=== PATIENT | male | born 1950 | race Two or more races ===

== ENCOUNTER 2018-05-24 12:08 | Inpatient (IN) | payer OTHER ==
[~2018-05-24] VITALS: Ht 152.4 cm; Wt 68.5 kg
[2018-06-12] MEDS ORDERED: LISINOPRIL20 MG PO (11:24)
[2018-06-12] MEDS ORDERED: FENOFIBRATE145 MG PO (11:25)
[2018-06-12] MEDS ORDERED: COD LIVER OIL1 EACH PO (11:25)
== END 2018-06-29 18:48 | disposition home or self-care (01) | DRG 329 ==
LOC: SURG 06-12 09:15 → SURH 06-26 05:40 → O/R 06-26 05:40 → SURG 06-26 09:15 → SURH 06-26 13:46
PROVIDERS: Urology; ADMIT Colon & Rectal Surgery
PROC: 0DTN0ZZ Resection of Sigmoid Colon, Open Approach (ICD-10-PCS; principal; 2018-06-26 10:15)
PROC: 0DJD8ZZ Inspection of Lower Intestinal Tract, Via Natural or Artificial Opening Endoscopic (ICD-10-PCS; 2018-06-26 10:15)
DX: K57.20 Diverticulitis of large intestine with perforation and abscess without bleeding (principal); K68.12 Psoas muscle abscess; D50.0 Iron deficiency anemia secondary to blood loss (chronic); I13.10 Hypertensive heart and chronic kidney disease without heart failure, with stage 1 through stage 4 chronic kidney disease, or unspecified chronic kidney disease; N18.3 Chronic kidney disease, stage 3 (moderate)

== ENCOUNTER 2019-10-04 06:40 | Day surgery (SDC) | payer OTHER ==
[~2019-10-04 06:40] MED LIST: COD LIVER OIL1 EACH PO; FENOFIBRATE145 MG PO; LISINOPRIL20 MG PO
== END 2019-10-04 12:35 | disposition home or self-care (01) ==
LOC: AMB-ENDOS 06:40
PROVIDERS: ATTEND Colon & Rectal Surgery
DX: K57.32 Diverticulitis of large intestine without perforation or abscess without bleeding (principal); K64.1 Second degree hemorrhoids